=== PATIENT | female | born 1955 | race Caucasian/White ===

== ENCOUNTER 2016-12-19 15:47 | Inpatient (IN) | payer OTHER ==
[~2016-12-19] VITALS: Ht 170.2 cm; Wt 83.7 kg
[~2016-12-19 15:47] MED LIST: ACET-784 PO; AMLO2.5T2 PO; AMOX1TAB15 PO; ASPI325T PO; SIMV40TA2 PO
[2016-12-19] MEDS ORDERED: IPRATROPIUM BROMIDE 0.5 MG/2.5 ML NEB SOLUTION NEB ONE (16:00)
[2016-12-19] MEDS ORDERED: ALBUTEROL SULFATE 2.5 MG/0.5 ML NEB SOLUTION NEB ONE (16:00)
[2016-12-19] MEDS ORDERED: 0.9% SODIUM CHLORIDE 5 ML NEB SOLUTION NEB ONE (16:11)
[2016-12-19 16:18] LABS: EOSINOPHILS % (AUTO) 0.03 % (1.0-6.0); HEMATOCRIT 39.5 % (36-46); HEMOGLOBIN 12.6 g/dL (12.0-16.0); LYMPHOCYTES # (AUTO) 0.8 K/uL (1.0-4.8); MEAN CORPUSCULAR HEMOGLOBIN 20.3 pg (26.0-34.0); MEAN CORPUSCULAR HGB CONC 31.8 G/dL (31.0-37.0); MEAN CORPUSCULAR VOLUME 64 fL (80-100); MONOCYTES # (AUTO) 1.1 K/uL (0.1-1.0); NEUTROPHILS # (AUTO) 9.2 K/uL (1.8-7.7); NEUTROPHILS % (AUTO) 83.1 % (40.0-70.0); PLATELET COUNT (AUTO) 305 K/uL (150-450); WHITE BLOOD COUNT (AUTO) 11.1 K/uL (4.5-11.0)
[2016-12-19 16:32] LABS: ANION GAP 17 mmol/L (8-16); CALCIUM, TOTAL 9.5 mg/dL (8.8-10.5); CARBON DIOXIDE 24 mmol/L (22-29); CHLORIDE 97 mmol/L (98-107); CREATININE 1.47 mg/dL (0.60-1.30); GLOMERULAR FILTR. RATE CALC 36 mL/min (>60); POTASSIUM 3.1 mmol/L (3.5-5.1); SODIUM SERUM 138 mmol/L (136-145); UREA NITROGEN, BLOOD 36 mg/dL (7-18)
[2016-12-19 16:32] LABS: ABG A-A DIFF O2 132.8 mmHg (10-20.0); ABG BASE EXCESS -2.1 mmol/L (-2.0-3.0); ABG HCO3 23.1 mmol/L (22.0-26.0); ABG OXYHEMOGLOBIN 87.3 % (94.0-100.0); ABG PCO2 34 mmHg (35-45); ABG PH 7.432 (7.35-7.450); TEMPERATURE, FAHRENHEIT, BG 98.7 FAHREN (96.0-98.6)
[2016-12-19 16:35] LABS: ALLEN TEST, BLOOD GAS Positive
[2016-12-19 16:35] LABS: PROTHROMBIN TIME 10.4 SEC (9.4-11.6)
[2016-12-19 16:48] LABS: RBC MORPHOLOGY COMMENT ABNORMAL RBC MORPH
[2016-12-19 16:55] LABS: ALANINE AMINOTRANSFERASE 27 U/L (12-78); ALBUMIN 3.3 g/dL (3.4-5.0); ASPARTATE AMINOTRANSFERASE 23 U/L (15-37); BILIRUBIN,TOTAL 0.7 mg/dL (0.1-1.0); CREATINE KINASE MB 0.8 ng/mL (0-5); CREATINE KINASE, TOTAL 94 U/L (26-192); TOTAL PROTEIN, SERUM 8.3 g/dL (6.4-8.2)
[2016-12-19] MEDS ORDERED: MethylPREDNISolone SOD SUCC 125 MG/2 ML VIAL IVP ONE (17:00)
[2016-12-19] MEDS ORDERED: FUROSEMIDE 40 MG/4 ML VIAL IVP ONE (17:00)
[2016-12-19] MEDS ORDERED: ENOXAPARIN SODIUM 60 MG/0.6 ML PF SYRINGE SQ ONE (17:15)
[2016-12-19] MEDS: POTASSIUM CHL 10 MEQ/WATER 50 ML IV SCH ×4 (17:16→22:41)
[2016-12-19 17:31] LABS: B-TYPE NATRIURETIC PEPTIDE 97 pg/mL (0-100)
[2016-12-19 17:35] LABS: INFLUENZA TYPE B NEGATIVE FOR TYPE B (NEGATIVE)
[2016-12-19] MEDS ORDERED: LEVOFLOXACIN 500 MG/D5% WATER 100 ML IV ONE (18:15)
[2016-12-19] MEDS ORDERED: PENTETATE DTPA TC99M/MCL ISOTOPE 1 EA INJ INJ ONE (18:40)
[2016-12-19] MEDS ORDERED: MAA ALBUMIN AGGREGATED TC99M/UD<10MCL ISOTOPE 1 EA INJ INJ ONE (19:05)
[2016-12-19] MEDS ORDERED: ONDANSETRON HCL 4 MG/2 ML VIAL IVP PRN (19:30)
[2016-12-19] MEDS ORDERED: 0.9% SODIUM CHLORIDE 10 ML SYRINGE IVP PRN (19:30)
[2016-12-19] MEDS ORDERED: ACETAMINOPHEN 325 MG TABLET PO PRN ×2 (19:30→21:45)
[2016-12-19] MEDS ORDERED: ALBUTEROL SULFATE 2.5 MG/0.5 ML NEB SOLUTION NEB SCH (20:00)
[2016-12-19] MEDS ORDERED: IPRATROPIUM BROMIDE 0.5 MG/2.5 ML NEB SOLUTION NEB SCH (20:00)
[2016-12-19 21:11] VITALS: BP 142/75
[2016-12-19] MEDS ORDERED: BISACODYL 10 MG RECTAL RECTAL SUPPOSITORY PR PRN (21:45)
[2016-12-19] MEDS ORDERED: MAGNESIUM HYDROXIDE SUSPENSION 30 ML UDCUP PO PRN (21:45)
[2016-12-19] MEDS ORDERED: OxyCODONE HCL/ACETAMINOPHEN 5-325 MG TABLET PO PRN (21:45)
[2016-12-19] MEDS ORDERED: SODIUM CHLORIDE 0.9% 500 ML IV ONE (22:00)
[2016-12-19] MEDS: ALBUTEROL SULFATE 2.5 MG/0.5 ML NEB SOLUTION NEB SCH (23:14)
[2016-12-19] MEDS: IPRATROPIUM BROMIDE 0.5 MG/2.5 ML NEB SOLUTION NEB SCH (23:14)
[2016-12-19] MEDS: MethylPREDNISolone SOD SUCC 125 MG/2 ML VIAL IVP SCH (23:29)
[2016-12-20] VITALS (7 sets, daily range): BP systolic 128–146; BP diastolic 66–82
[2016-12-20] MEDS ORDERED: HEPARIN SODIUM,PORCINE 5,000 UNITS/ML VIAL SQ SCH
[2016-12-20 02:03] LABS: ADD UA MICROSCOPIC NO; APPEARANCE,URINE CLEAR (CLEAR); GLUCOSE, URINE (UA) NEGATIVE (NEGATIVE); KETONES,URINE NEGATIVE (NEGATIVE); LEUKOCYTE ESTERASE ,URINE NEGATIVE (NEGATIVE); OCCULT BLOOD,URINE NEGATIVE (NEGATIVE); PH,URINE 5.5 (5.0-8.0); PROTEIN,URINE POS 1+ (NEGATIVE)
[2016-12-20] MEDS: ALBUTEROL SULFATE 2.5 MG/0.5 ML NEB SOLUTION NEB SCH ×6 (02:38→23:55)
[2016-12-20] MEDS: IPRATROPIUM BROMIDE 0.5 MG/2.5 ML NEB SOLUTION NEB SCH ×6 (02:38→23:55)
[2016-12-20] MEDS: MethylPREDNISolone SOD SUCC 125 MG/2 ML VIAL IVP SCH ×4 (06:05→23:29)
[2016-12-20 06:27] LABS: EOSINOPHILS % (AUTO) 0.1 % (1.0-6.0); HEMATOCRIT 35.4 % (36-46); HEMOGLOBIN 10.9 g/dL (12.0-16.0); LYMPHOCYTES # (AUTO) 0.7 K/uL (1.0-4.8); LYMPHOCYTES % (AUTO) 7.8 % (22.0-44.0); MEAN CORPUSCULAR HGB CONC 30.9 G/dL (31.0-37.0); MEAN CORPUSCULAR VOLUME 65 fL (80-100); MONOCYTES # (AUTO) 0.2 K/uL (0.1-1.0); MONOCYTES % (AUTO) 1.9 % (2.0-9.0); NEUTROPHILS # (AUTO) 7.8 K/uL (1.8-7.7); PLATELET COUNT (AUTO) 265 K/uL (150-450); RED BLOOD CELL COUNT(AUTO) 5.47 MIL/uL (4.00-5.20); RED CELL DISTRIBUTION WIDTH 15.8 % (11.5-14.5); WHITE BLOOD COUNT (AUTO) 8.7 K/uL (4.5-11.0)
[2016-12-20 06:49] LABS: NEUTROPHILS % (AUTO) 90.2 % (40.0-70.0)
[2016-12-20 06:50] LABS: ALBUMIN 2.9 g/dL (3.4-5.0); BILIRUBIN,TOTAL 0.4 mg/dL (0.1-1.0); CALCIUM, TOTAL 9.3 mg/dL (8.8-10.5); CREATININE 1.2 mg/dL (0.60-1.30); POTASSIUM 3.5 mmol/L (3.5-5.1); TOTAL PROTEIN, SERUM 7.6 g/dL (6.4-8.2)
[2016-12-20 08:56] LABS: RBC MORPHOLOGY COMMENT ABNORMAL RBC MORPH
[2016-12-20] MEDS: DOCUSATE SODIUM 100 MG CAPSULE PO SCH ×2 (09:00→22:04)
[2016-12-20] MEDS: ASPIRIN 81 MG CHEWABLE TABLET PO SCH (09:36)
[2016-12-20] MEDS: PANTOPRAZOLE SODIUM 40 MG DR TABLET PO SCH (09:39)
[2016-12-20] MEDS: HEPARIN SODIUM,PORCINE 5,000 UNITS/ML VIAL SQ SCH ×2 (09:42→22:04)
[2016-12-20] MEDS ORDERED: SODIUM CHLORIDE 0.9% 250 ML IV ONE (16:27)
[2016-12-20] MEDS: LEVOFLOXACIN 500 MG/D5% WATER 100 ML IV SCH (17:11)
[2016-12-21] MEDS: IPRATROPIUM BROMIDE 0.5 MG/2.5 ML NEB SOLUTION NEB SCH ×5 (02:42→20:06)
[2016-12-21] MEDS: ALBUTEROL SULFATE 2.5 MG/0.5 ML NEB SOLUTION NEB SCH ×5 (02:42→20:06)
[2016-12-21 05:06] VITALS: BP 115/61
[2016-12-21] MEDS: MethylPREDNISolone SOD SUCC 125 MG/2 ML VIAL IVP SCH ×3 (06:04→17:57)
[2016-12-21 07:28] VITALS: BP 148/80
[2016-12-21] MEDS: ASPIRIN 81 MG CHEWABLE TABLET PO SCH (09:19)
[2016-12-21] MEDS: HEPARIN SODIUM,PORCINE 5,000 UNITS/ML VIAL SQ SCH ×2 (09:19→20:08)
[2016-12-21] MEDS: PANTOPRAZOLE SODIUM 40 MG DR TABLET PO SCH (09:19)
[2016-12-21] MEDS: DOCUSATE SODIUM 100 MG CAPSULE PO SCH ×2 (09:19→20:03)
[2016-12-21 11:29] VITALS: BP 135/80
[2016-12-21 16:13] VITALS: BP 103/66
[2016-12-21] MEDS: LEVOFLOXACIN 500 MG/D5% WATER 100 ML IV SCH (17:56)
[2016-12-21 19:41] VITALS: BP 147/80
[2016-12-21 23:20] VITALS: BP 144/80
[2016-12-22] MEDS: MethylPREDNISolone SOD SUCC 125 MG/2 ML VIAL IVP SCH ×5 (00:26→23:48)
[2016-12-22] MEDS: IPRATROPIUM BROMIDE 0.5 MG/2.5 ML NEB SOLUTION NEB SCH ×6 (00:29→19:36)
[2016-12-22] MEDS: ALBUTEROL SULFATE 2.5 MG/0.5 ML NEB SOLUTION NEB SCH ×6 (00:29→19:36)
[2016-12-22 04:48] VITALS: BP 136/82
[2016-12-22 07:38] VITALS: BP 146/86
[2016-12-22] MEDS: ASPIRIN 81 MG CHEWABLE TABLET PO SCH (08:32)
[2016-12-22] MEDS: DOCUSATE SODIUM 100 MG CAPSULE PO SCH ×2 (08:34→21:00)
[2016-12-22] MEDS: PANTOPRAZOLE SODIUM 40 MG DR TABLET PO SCH (08:34)
[2016-12-22] MEDS: HEPARIN SODIUM,PORCINE 5,000 UNITS/ML VIAL SQ SCH ×2 (08:35→21:45)
[2016-12-22 11:37] VITALS: BP 145/86
[2016-12-22 16:30] VITALS: BP 142/83
[2016-12-22] MEDS ORDERED: MULTIVITAMINS WITH MINERALS, THERAPEUTIC TABLET PO ONE (16:45)
[2016-12-22] MEDS ORDERED: AmLODIPine BESYLATE 5 MG TABLET PO ONE (16:45)
[2016-12-22] MEDS: LEVOFLOXACIN 500 MG/D5% WATER 100 ML IV SCH (17:23)
[2016-12-22 19:39] VITALS: BP 146/83
[2016-12-22] MEDS: ATORVASTATIN CALCIUM 40 MG TABLET PO SCH (21:46)
[2016-12-23] VITALS (7 sets, daily range): BP systolic 133–151; BP diastolic 75–86
[2016-12-23] MEDS: IPRATROPIUM BROMIDE 0.5 MG/2.5 ML NEB SOLUTION NEB SCH ×7 (00:01→23:28)
[2016-12-23] MEDS: ALBUTEROL SULFATE 2.5 MG/0.5 ML NEB SOLUTION NEB SCH ×7 (00:01→23:28)
[2016-12-23] MEDS: MethylPREDNISolone SOD SUCC 125 MG/2 ML VIAL IVP SCH ×2 (05:20→12:10)
[2016-12-23] MEDS: DOCUSATE SODIUM 100 MG CAPSULE PO SCH ×2 (09:00→20:36)
[2016-12-23] MEDS ORDERED: AmLODIPine BESYLATE 5 MG TABLET PO SCH (09:00)
[2016-12-23] MEDS: ASPIRIN 81 MG CHEWABLE TABLET PO SCH (09:56)
[2016-12-23] MEDS: AmLODIPine BESYLATE 10 MG TABLET PO SCH (09:56)
[2016-12-23] MEDS: PANTOPRAZOLE SODIUM 40 MG DR TABLET PO SCH (09:56)
[2016-12-23] MEDS: HEPARIN SODIUM,PORCINE 5,000 UNITS/ML VIAL SQ SCH ×2 (09:56→20:31)
[2016-12-23 12:28] LABS: HEMATOCRIT 36.1 % (36-46); HEMOGLOBIN 11.4 g/dL (12.0-16.0); MEAN CORPUSCULAR HEMOGLOBIN 20.2 pg (26.0-34.0); MEAN CORPUSCULAR HGB CONC 31.7 G/dL (31.0-37.0); MEAN CORPUSCULAR VOLUME 64 fL (80-100); PLATELET COUNT (AUTO) 340 K/uL (150-450); RED BLOOD CELL COUNT(AUTO) 5.67 MIL/uL (4.00-5.20); RED CELL DISTRIBUTION WIDTH 16.5 % (11.5-14.5); WHITE BLOOD COUNT (AUTO) 13.4 K/uL (4.5-11.0)
[2016-12-23] MEDS ORDERED: 0.9% SODIUM CHLORIDE 10 ML SYRINGE IVP PRN (12:30)
[2016-12-23 12:38] LABS: CALCIUM, TOTAL 9.3 mg/dL (8.8-10.5); CREATININE 1.05 mg/dL (0.60-1.30); POTASSIUM 4.6 mmol/L (3.5-5.1)
[2016-12-23 12:44] LABS: ALBUMIN 3.1 g/dL (3.4-5.0); BILIRUBIN,TOTAL 0.5 mg/dL (0.1-1.0); TOTAL PROTEIN, SERUM 7.2 g/dL (6.4-8.2)
[2016-12-23 12:55] LABS: BAND NEUTROPHILS % (MANUAL) 2 % (1-5); LYMPHOCYTES % (MANUAL) 14 % (22-44); REACTIVE LYMPHOCYTES 1 % (0-0); TOTAL CELLS COUNTED 100
[2016-12-23] MEDS ORDERED: ALBU8.5H IH (13:00)
[2016-12-23] MEDS ORDERED: SODI30SP3 NASAL (13:00)
[2016-12-23] MEDS ORDERED: FLUT16H NASAL (13:00)
[2016-12-23] MEDS ORDERED: AMLO-512 PO (13:00)
[2016-12-23] MEDS ORDERED: ATOR40TA28 PO (13:00)
[2016-12-23] MEDS ORDERED: MULT-1192 PO (13:00)
[2016-12-23] MEDS ORDERED: BECL8.7A5 NASAL (13:00)
[2016-12-23] MEDS ORDERED: ASPI81 PO (13:00)
[2016-12-23] MEDS: LEVOFLOXACIN 500 MG/D5% WATER 100 ML IV SCH (16:16)
[2016-12-23] MEDS: MethylPREDNISolone SOD SUCC 40 MG/ML VIAL IVP SCH ×2 (17:39→23:51)
[2016-12-23] MEDS: ATORVASTATIN CALCIUM 40 MG TABLET PO SCH (20:30)
[2016-12-24] MEDS: IPRATROPIUM BROMIDE 0.5 MG/2.5 ML NEB SOLUTION NEB SCH ×6 (02:40→23:28)
[2016-12-24] MEDS: ALBUTEROL SULFATE 2.5 MG/0.5 ML NEB SOLUTION NEB SCH ×6 (02:40→23:28)
[2016-12-24 04:33] VITALS: BP 135/80
[2016-12-24] MEDS: MethylPREDNISolone SOD SUCC 40 MG/ML VIAL IVP SCH ×2 (05:55→12:13)
[2016-12-24 07:18] LABS: HEMATOCRIT 34.1 % (36-46); HEMOGLOBIN 10.9 g/dL (12.0-16.0); MEAN CORPUSCULAR HEMOGLOBIN 20.1 pg (26.0-34.0); MEAN CORPUSCULAR HGB CONC 32.1 G/dL (31.0-37.0); MEAN CORPUSCULAR VOLUME 63 fL (80-100); PLATELET COUNT (AUTO) 344 K/uL (150-450); RED BLOOD CELL COUNT(AUTO) 5.44 MIL/uL (4.00-5.20); RED CELL DISTRIBUTION WIDTH 15.4 % (11.5-14.5); WHITE BLOOD COUNT (AUTO) 14.1 K/uL (4.5-11.0)
[2016-12-24 07:20] VITALS: BP 161/83
[2016-12-24 07:20] LABS: ALBUMIN 2.9 g/dL (3.4-5.0); BILIRUBIN,TOTAL 0.5 mg/dL (0.1-1.0); CALCIUM, TOTAL 9.1 mg/dL (8.8-10.5); CREATININE 0.98 mg/dL (0.60-1.30); POTASSIUM 4.9 mmol/L (3.5-5.1); TOTAL PROTEIN, SERUM 6.8 g/dL (6.4-8.2)
[2016-12-24] MEDS: HEPARIN SODIUM,PORCINE 5,000 UNITS/ML VIAL SQ SCH ×2 (08:26→20:36)
[2016-12-24] MEDS: ASPIRIN 81 MG CHEWABLE TABLET PO SCH (08:27)
[2016-12-24] MEDS: AmLODIPine BESYLATE 10 MG TABLET PO SCH (08:27)
[2016-12-24] MEDS: PANTOPRAZOLE SODIUM 40 MG DR TABLET PO SCH (08:27)
[2016-12-24] MEDS: DOCUSATE SODIUM 100 MG CAPSULE PO SCH ×2 (08:29→20:35)
[2016-12-24 10:34] LABS: BAND NEUTROPHILS % (MANUAL) 3 % (1-5); LYMPHOCYTES % (MANUAL) 15 % (22-44); TOTAL CELLS COUNTED 100
[2016-12-24 10:35] LABS: RBC MORPHOLOGY COMMENT ABNORMAL R
[2016-12-24 11:54] VITALS: BP 130/80
[2016-12-24 15:20] VITALS: BP 131/76
[2016-12-24] MEDS: LEVOFLOXACIN 500 MG/D5% WATER 100 ML IV SCH (17:17)
[2016-12-24 20:08] VITALS: BP 128/72
[2016-12-24] MEDS: ATORVASTATIN CALCIUM 40 MG TABLET PO SCH (20:36)
[2016-12-24 23:37] VITALS: BP 134/75
[2016-12-25] MEDS: ALBUTEROL SULFATE 2.5 MG/0.5 ML NEB SOLUTION NEB SCH ×4 (02:38→16:52)
[2016-12-25] MEDS: IPRATROPIUM BROMIDE 0.5 MG/2.5 ML NEB SOLUTION NEB SCH ×4 (02:38→16:52)
[2016-12-25 04:36] VITALS: BP 138/78
[2016-12-25 06:15] LABS: BASOPHILS % (AUTO) 0.3 % (0.0-2.0); EOSINOPHILS % (AUTO) 0.2 % (1.0-6.0); HEMATOCRIT 34.9 % (36-46); HEMOGLOBIN 10.5 g/dL (12.0-16.0); LYMPHOCYTES % (AUTO) 19.7 % (22.0-44.0); MEAN CORPUSCULAR HEMOGLOBIN 19.6 pg (26.0-34.0); MEAN CORPUSCULAR HGB CONC 30.1 G/dL (31.0-37.0); MEAN CORPUSCULAR VOLUME 65 fL (80-100); MONOCYTES # (AUTO) 1.2 K/uL (0.1-1.0); MONOCYTES % (AUTO) 7.9 % (2.0-9.0); NEUTROPHILS % (AUTO) 71.9 % (40.0-70.0); PLATELET COUNT (AUTO) 334 K/uL (150-450); RED BLOOD CELL COUNT(AUTO) 5.36 MIL/uL (4.00-5.20); RED CELL DISTRIBUTION WIDTH 15.5 % (11.5-14.5); WHITE BLOOD COUNT (AUTO) 15.2 K/uL (4.5-11.0)
[2016-12-25 07:17] VITALS: BP 140/85
[2016-12-25 07:24] LABS: ALANINE AMINOTRANSFERASE 36 U/L (12-78); ALBUMIN 2.8 g/dL (3.4-5.0); ANION GAP 7 mmol/L (8-16); ASPARTATE AMINOTRANSFERASE 17 U/L (15-37); BILIRUBIN,TOTAL 0.5 mg/dL (0.1-1.0); CALCIUM, TOTAL 8.5 mg/dL (8.8-10.5); CARBON DIOXIDE 30 mmol/L (22-29); CHLORIDE 100 mmol/L (98-107); CREATININE 0.94 mg/dL (0.60-1.30); GLOMERULAR FILTR. RATE CALC > 60 mL/min (>60); SODIUM SERUM 137 mmol/L (136-145); TOTAL PROTEIN, SERUM 6.1 g/dL (6.4-8.2); UREA NITROGEN, BLOOD 29 mg/dL (7-18)
[2016-12-25] MEDS: HEPARIN SODIUM,PORCINE 5,000 UNITS/ML VIAL SQ SCH (07:54)
[2016-12-25] MEDS: PANTOPRAZOLE SODIUM 40 MG DR TABLET PO SCH (07:55)
[2016-12-25] MEDS: DOCUSATE SODIUM 100 MG CAPSULE PO SCH (07:55)
[2016-12-25] MEDS: AmLODIPine BESYLATE 10 MG TABLET PO SCH (07:55)
[2016-12-25] MEDS: ASPIRIN 81 MG CHEWABLE TABLET PO SCH (08:00)
[2016-12-25] MEDS ORDERED: PredniSONE 20 MG TABLET PO SCH (09:00)
[2016-12-25 11:00] LABS: RBC MORPHOLOGY COMMENT ABNORMAL RBC MORPH
[2016-12-25 12:00] VITALS: BP 138/68
[2016-12-25 12:13] LABS: GLUCOSE,POINT OF CARE 284 MG/DL (70-110)
[2016-12-25 15:22] VITALS: BP 135/74
[2016-12-25] MEDS: LEVOFLOXACIN 500 MG/D5% WATER 100 ML IV SCH (16:57)
[2016-12-25] MEDS ORDERED: PRED5 PO (17:40)
[2016-12-25] MEDS ORDERED: LEVO500 PO (17:43)
[2016-12-25 21:06] LABS: COCCIDIOIDES AB BY CF(TITER) Negative (Neg:<1:2)
== END 2016-12-25 19:45 | disposition home or self-care (01) | DRG 189 ==
LOC: EMS 15:50 → 5N 20:14 → 6N 12-23 18:48
PROVIDERS: ADMIT Internal Medicine; ATTEND Internal Medicine
DX: J96.01 Acute respiratory failure with hypoxia (principal); J18.9 Pneumonia, unspecified organism; N17.9 Acute kidney failure, unspecified; J44.1 Chronic obstructive pulmonary disease with (acute) exacerbation; J45.901 Unspecified asthma with (acute) exacerbation; J44.0 Chronic obstructive pulmonary disease with (acute) lower respiratory infection; E44.0 Moderate protein-calorie malnutrition; D64.9 Anemia, unspecified; E87.6 Hypokalemia; E66.9 Obesity, unspecified; D56.9 Thalassemia, unspecified; E78.5 Hyperlipidemia, unspecified; I10 Essential (primary) hypertension; F17.210 Nicotine dependence, cigarettes, uncomplicated; Z68.28 Body mass index [BMI] 28.0-28.9, adult; Z79.899 Other long term (current) drug therapy; Z79.82 Long term (current) use of aspirin; Z98.890 Other specified postprocedural states
CPT/HCPCS: 71250; 78582; 82805; 82962; 83605; 85379; 86480; 86635; 87015; 87040; 87804; 93005; 93306; 93970; 94640; 96365; 96366; 96372; 96375; 99291; A9539; A9540; J1644; J1650; J1940; J1956; J2920; J2930; J3480; J7040; J7050